=== PATIENT | female | born 1990 | race Hispanic/Latino ===

== ENCOUNTER 2017-04-22 20:35 | Emergency (ER) | payer BC, OTHER ==
[~2017-04-22] VITALS: Ht 167.6 cm; Wt 97.7 kg
[2017-04-22] MEDS ORDERED: DIFL150T PO (22:52)
[2017-04-22] MEDS ORDERED: FLAG500T PO (22:52)
[2017-04-22] MEDS ORDERED: FLUCONAZOLE 50MG TABLET PO ONE (23:00)
[2017-04-22] MEDS ORDERED: metroNIDAZOLE (FLAGYL) 500 MG TAB PO ONE (23:00)
[2017-04-22 23:05] VITALS: BP 127/79
== END 2017-04-22 23:37 | disposition home or self-care (01) ==
LOC: M ED 20:35
DX: B37.3 Candidiasis of vulva and vagina (principal)

== ENCOUNTER 2017-05-17 14:34 | Emergency (ER) | payer OTHER ==
[~2017-05-17] VITALS: Ht 167.6 cm; Wt 97.7 kg
[~2017-05-17 14:34] MED LIST: DIFL150T PO; FLAG500T PO
[2017-05-17] MEDS ORDERED: CEPH500C PO (15:11)
[2017-05-17] MEDS ORDERED: PRED20TA PO (15:44)
[2017-05-17] MEDS ORDERED: BACT800T5 PO (15:44)
[2017-05-17] MEDS ORDERED: NAPR500T3 PO (15:44)
[2017-05-17 15:56] VITALS: BP 124/79
[2017-05-20 00:11] LABS: Lyme Disease IgG/IgM Antibodie <0.91 ISR (0.00-0.90); Lyme Disease IgM Ab Quantitati <0.80 index (0.00-0.79)
== END 2017-05-17 15:59 | disposition home or self-care (01) ==
LOC: M ED 14:34
DX: L03.116 Cellulitis of left lower limb (principal); S60.862A Insect bite (nonvenomous) of left wrist, initial encounter; W57.XXXA Bitten or stung by nonvenomous insect and other nonvenomous arthropods, initial encounter; Y92.89 Other specified places as the place of occurrence of the external cause; Y93.89 Activity, other specified; Y99.9 Unspecified external cause status

== ENCOUNTER → 2017-07-28 | Outpatient (CLI) | payer OTHER ==
[2017-07-28 13:52] LABS: HCG, SERUM QUANTITATIVE 106 MIU/ML
== END ==
LOC: M LAB 12:49
DX: N91.2 Amenorrhea, unspecified (principal)
CPT/HCPCS: 84702

== ENCOUNTER → 2017-08-02 | Outpatient (CLI) | payer OTHER ==
[2017-08-02 12:57] LABS: HCG, SERUM QUANTITATIVE 301 MIU/ML
== END ==
LOC: M LAB 12:11
DX: N91.2 Amenorrhea, unspecified (principal)
CPT/HCPCS: 84702

== ENCOUNTER → 2017-08-04 | Outpatient (CLI) | payer OTHER ==
[2017-08-04 14:27] LABS: HCG, SERUM QUANTITATIVE 410 MIU/ML
== END ==
LOC: M LAB 12:56
DX: N91.2 Amenorrhea, unspecified (principal)
CPT/HCPCS: 84702

== ENCOUNTER → 2017-08-08 | Outpatient (CLI) | payer OTHER ==
[2017-08-08 14:22] LABS: HCG, SERUM QUANTITATIVE 945 MIU/ML
== END ==
LOC: M LAB 13:16
DX: N91.2 Amenorrhea, unspecified (principal)
CPT/HCPCS: 84702

== ENCOUNTER 2017-08-10 14:00 | Emergency (ER) | payer OTHER | END 2017-08-10 15:46 | disposition home or self-care (01) | LOC: M ED 14:00 | DX: O20.0 Threatened abortion (principal); Z3A.01 Less than 8 weeks gestation of pregnancy; Z91.040 Latex allergy status | CPT/HCPCS: 99282 ==

== ENCOUNTER → 2017-08-10 | Outpatient (CLI) | payer OTHER ==
[2017-08-10 13:01] LABS: HCG, SERUM QUANTITATIVE 1299 MIU/ML
== END ==
LOC: M LAB 12:07
DX: N91.2 Amenorrhea, unspecified (principal)
CPT/HCPCS: 84702

== ENCOUNTER → 2017-08-17 | Outpatient (CLI) | payer OTHER ==
[2017-08-17 13:44] LABS: HCG, SERUM QUANTITATIVE 261 MIU/ML
== END ==
LOC: M LAB 13:08
DX: O02.1 Missed abortion (principal)
CPT/HCPCS: 84702

== ENCOUNTER → 2018-06-04 | Outpatient (CLI) | payer OTHER ==
[2018-06-04 12:51] LABS: HCG, SERUM QUANTITATIVE < 1.0 MIU/ML
== END ==
LOC: M LAB 12:00
DX: O02.1 Missed abortion (principal)
CPT/HCPCS: 84702

== ENCOUNTER → 2019-01-11 | Outpatient (CLI) | payer OTHER ==
[~2019-01-11] MED LIST changes: +BACT800T5 PO; +CEPH500C PO; +NAPR-885 PO; +PRED20TA PO; +TYLE325T5 PO; +prenatal PO
[2019-01-11 10:35] LABS: BASO % 0.5 % (0.0-1.0); EOS # 0.1 10^3/uL (0.0-0.50); EOS % 1.1 % (0.0-3.0); HEMATOCRIT 40.8 % (36.0-47.0); HEMOGLOBIN 14.4 g/dl (12.0-15.5); LYMPH # 1.8 10^3/uL (1.5-6.5); LYMPH % 21.4 % (24.0-44.0); MEAN CORPUSCULAR HEMOGLOBIN 32.8 pg (27.0-33.0); MEAN CORPUSCULAR HGB CONC 35.3 g/dl (32.0-36.5); MEAN CORPUSCULAR VOLUME 92.9 fl (80.0-96.0); MONO # 0.5 10^3/uL (0.0-0.8); MONO % 6.6 % (0.0-5.0); NEUTROPHILS # 5.7 10^3/uL (1.8-7.7); PLATELET COUNT, AUTOMATED 230 10^3/uL (150-450); RED BLOOD COUNT 4.39 10^6/uL (4.00-5.40); WHITE BLOOD COUNT 8.2 10^3/uL (4.0-10.0)
[2019-01-11 10:59] LABS: ALBUMIN 3.9 GM/DL (3.2-5.2); ALT/SGPT 24 U/L (12-78); BILIRUBIN,TOTAL 0.6 MG/DL (0.2-1.0); BLOOD UREA NITROGEN 11 MG/DL (7-18); CARBON DIOXIDE LEVEL 26 MEQ/L (21-32); CHLORIDE LEVEL 105 MEQ/L (98-107); CREATININE FOR GFR 0.75 MG/DL (0.55-1.30); GLOMERULAR FILTRATION RATE > 60.0 (>60); GLUCOSE, FASTING 82 MG/DL (70-100); POTASSIUM SERUM 4.3 MEQ/L (3.5-5.1); SODIUM LEVEL 139 MEQ/L (136-145); TOTAL PROTEIN 7.6 GM/DL (6.4-8.2)
[2019-01-11 11:04] LABS: HEMOGLOBIN A1c 4.6 %
== END ==
LOC: M LAB 09:39
DX: Z83.3 Family history of diabetes mellitus (principal); R63.5 Abnormal weight gain; G44.209 Tension-type headache, unspecified, not intractable

== ENCOUNTER 2019-01-17 13:29 | Outpatient (RCR) | payer OTHER | END 2019-01-20 | LOC: M PT 13:29 | DX: R51 Headache (principal) ==

== ENCOUNTER 2019-02-14 14:30 | Outpatient (RCR) | payer OTHER | END 2019-02-20 | LOC: M PT 14:30 | DX: Z51.89 Encounter for other specified aftercare (principal); R51 Headache ==